=== PATIENT | male | born 1960 | race Caucasian/White ===

== ENCOUNTER 2025-03-01 07:49 | Day surgery (SDC) | payer OTHER, SELFPAY ==
--- NOTE | 2025-03-01 | PATH_ITS ---
[facility] Accession Number: [id number] No. of containers..01 Tissue . 01 Material submitted: . colon - COLON, ASCENDING POLYP . 01 Diagnosis: COLON, ASCENDING POLYP: Sessile serrated adenoma. [facility] 03/12/2025 1132 Local . 01 Electronically signed: . Ole Sheppard MD, Pathologist NPI- [id number] . 01 Gross description: . COLON,ASCENDING POLYP: Received in formalin is 1 fragment(s) of handy, soft tissue measuring 0.6 x 0.6 x 0.3 cm submitted entirely in 1 cassette(s) /RYANN 03/12/2025 1132 Local . 01 Pathologist provided ICD-10: D12.2 . 01 CPT . 896661 Specimen Comment: A courtesy copy of this report has been sent to [phone] Performed at: [address] [facility] [id number], [place], [place] [id number] MD Ole Sheppard MD Phone: [phone]
[2025-03-01 08:32] VITALS: BP 130/78; PULSE 60; RESP 16; TEMP 36.1; O2SAT 95
[2025-03-01] MEDS: LACTATED RINGERS 1,000 ML 42 ML IV (08:34)
--- NOTE | 2025-03-01 09:07 | PM.HP.IH.1 ---
History of Present Illness History of Present Illness Date Patient Seen: 03/01/25 Time Patient Seen: 09:07 Chief complaint: Screening Colonoscopy Narrative: Tim is a 65-year-old man who had a recent positive Cologuard test few months ago. He has never noticed blood in his stool. He has never had a colonoscopy. No known family history of colon cancer. PFSH Social History Smoking Status: Never smoker alcohol intake: current Meds Home Medications and Allergies Home Medications ?Medication ?Instructions ?Recorded ?Confirmed ?Type atorvastatin 20 mg tablet 20 mg PO DAILY 02/28/25 03/01/25 History cetirizine 10 mg tablet 10 mg PO DAILY 02/28/25 03/01/25 History metformin 500 mg tablet,extended 500 mg PO BID 02/28/25 03/01/25 History release 24 hr sildenafil 100 mg tablet PO 02/28/25 History Allergies Allergy/AdvReac Type Severity Reaction Status Date / Time No Known Drug Allergies Allergy Verified 03/01/25 08:16 Exam Vital Signs (past 8 hours): - 03/01/25 08:32 Temperature 97.0 F L Pulse Rate 60 Respiratory Rate 16 Blood Pressure 130/78 Pulse Oximetry 95 Oxygen Delivery Method Room Air Oxygen Delivery Method Room Air Const General: No acute distress Resp Effort & Inspection: normal respiratory effort Assessment & Plan Assessment and plan (1) Positive colorectal cancer screening using Cologuard test: Status: Acute Plan Colonoscopy Time-Based Coding :: [TOTAL MINUTES] spent with patient and on the chart (including review of chart, obtaining history, exam, reviewing outside data, placing orders, documenting exam and treatment plan, and counseling patient) on [DATE]. [employer] D[employer] Document charge(s): No
[2025-03-01 09:40] VITALS: BP 119/65; PULSE 63; RESP 16; TEMP 36.2; O2SAT 98
--- NOTE | 2025-03-01 09:40 | P.OP.COLON_ITS ---
Operative Date/Time/Diagnoses Date of procedure: 03/01/25 Time of procedure: 09:41 Pre-op diagnosis: Positive Cologuard test Post-op diagnosis: same Procedure & Clinicians Study performed: Colonoscopy Same procedure(s) as scheduled: Yes Surgeon: Floyd Amador Anesthesia Type: MAC +/- Procedure Notes Procedure in detail: Surgeon: Floyd Amador MD Anesthesia: Zorina Rodriguez [facility]MIN[address] JUSTICE Procedure: The patient was brought to the endoscopy suite, placed in left lateral decubitus position. The patient was connected to monitoring devices. A time-out was performed. Sedation was administered. Once the patient was adequately sedated, a digital rectal exam was performed and was normal. The scope was then inserted and advanced to the cecum where the appendiceal orifice was identified and photographed. The scope was then slowly withdrawn over greater than 6 minutes. The mucosa was thoroughly inspected. There was a 5 mm polyp in the ascending colon removed with a cold snare. No other abnormalities were found in the colon. The scope was retroflexed in the rectum. No other abnormalities were seen rectum. The scope was straightened and removed. The patient was awakened and brought to recovery. Scope withdrawal time: 9 minutes Sedation time: 12 minutes EBL: 2 mL Findings: 5 mm polyp in the ascending colon Post-procedure Disposition: PACU
[2025-03-01 09:51] VITALS: BP 145/62; PULSE 77; RESP 16; TEMP 36.2; O2SAT 100
== END 2025-03-01 10:10 | disposition home or self-care (01) ==
PROVIDERS: Referring Provider Surgery; Visit Provider Surgery
PROC: 0DJD8ZZ Inspection of Lower Intestinal Tract, Via Natural or Artificial Opening Endoscopic (ICD-10-PCS; CPT 45378; principal; 2025-03-01 09:00)
DX: Z12.11 Encounter for screening for malignant neoplasm of colon (principal); R19.5 Other fecal abnormalities; D12.2 Benign neoplasm of ascending colon
CPT/HCPCS: 45385; 82962; J2704